=== PATIENT | male | born 1965 | race American Indian/Alaskan Native ===

== ENCOUNTER 2016-06-30 00:05 | Emergency (ER) | payer SELFPAY ==
[~2016-06-30 00:05] MED LIST: DOBUTREX DRIP 500MG/D5W 250ML 500 MG/250 ML BAG IV ONE
[2016-06-30] MEDS: SUBLIMAZE IV ONE ×2 (00:05→00:22)
[2016-06-30] MEDS: NACL 0.9% 1000 ML 2,000 ML IV ONE (00:10)
[2016-06-30] MEDS ORDERED: DOBUTREX DRIP 500MG/D5W 250ML 500 MG/250 ML BAG IV ONE (00:16)
[2016-06-30] MEDS ORDERED: SUBLIMAZE ONE (00:20)
[2016-06-30] MEDS ORDERED: LEVOPHED DRIP 4 MG/NS 250 ML 4 MG/250 ML BAG IV ONE (00:25)
[2016-06-30] MEDS: LEVOPHED 8 MG in NACL 0.9% 250ML 242 ML IV SCH (00:32)
[2016-06-30 01:15] LABS: Hematocrit 34.8 % (35.5-45.6); Hemoglobin 11.1 gm/dl (11.8-15.2); Mean Corpuscular HGB Conc 32 % (32-34); Mean Corpuscular Volume 75 fl (84-94); Platelet Count 357 K/mm3 (140-440); Red Blood Count 4.66 M/mm3 (3.65-5.03); White Blood Count 10.1 K/mm3 (4.5-11.0)
--- NOTE | 2016-06-30 01:20 | Emergency Department Report ---
ED Chest Pain HPI - General Chief Complaint: Chest Pain Stated Complaint: ANTONETTE Time Seen by Provider: 06/30/16 00:33 Source: patient, EMS Mode of arrival: Stretcher Limitations: No Limitations - History of Present Illness Initial Comments: Patient is a 50-year-old male with a history of hypertension, CHF, cardiomyopathy, recent NJ in March status post defibrillator pacemaker into left chest presenting to the ER with acute onset chest pain and dyspnea prior to arrival. Chest pain is sharp, constant, and in the middle of his chest. Pt reports this is the same pain he had when he had an NJ in March, treated at [facility]. Otherwise no fevers, chills, hemoptysis, LEE, abd pain, NVD, trauma, travel, or sick contacts MD Complaint: chest pain, other (SOB) -: Sudden, minutes(s) Onset: during rest Pain Location: substernal Severity: severe Severity scale (0 -10): 10 Quality: sharp Consistency: constant Improves With: nothing Worsens With: exertion - Related Data Allergies Allergy/AdvReac Type Severity Reaction Status Date / Time Iodinated Contrast Media - AdvReac Rash Verified 06/30/16 00:36 IV Dye BENJAMIN score - Benjamin Score Age > 65: (0) No Aspirin use within the Past 7 Days: (1) Yes 3 or more CAD Risk Factors: (1) Yes 2 or more Angina events in past 24 hrs: (0) No Known CAD with more than 50% Stenosis: (1) Yes Elevated Cardiac Markers: (1) Yes ST Deviation Greater than 0.5mm: (0) No BENJAMIN Score: 4 ED Review of Systems ROS: Stated complaint: ANTONETTE Other details as noted in HPI Comment: All other systems reviewed and negative ED Past Medical Hx - Past Medical History Previous Medical History?: Yes Hx Hypertension: Yes Hx Heart Attack/AMI: Yes Hx Congestive Heart Failure: Yes (EF 10-15%) - Surgical History Hx Coronary Stent: Yes Hx Pacemaker: Yes Hx Internal Defibrillator: Yes ED Physical Exam - General Limitations: No Limitations General appearance: alert, in distress - Head Head exam: Present: atraumatic, normocephalic - Eye Eye exam: Present: normal appearance - ENT ENT exam: Present: mucous membranes moist - Neck Neck exam: Present: normal inspection - Respiratory Respiratory exam: Present: normal lung sounds bilaterally. Absent: respiratory distress - Cardiovascular Cardiovascular Exam: Present: tachycardia. Absent: systolic murmur, diastolic murmur, rubs, gallop - GI/Abdominal GI/Abdominal exam: Present: soft, normal bowel sounds. Absent: distended, tenderness, guarding, rebound - Rectal Rectal exam: Present: deferred - Extremities Exam Extremities exam: Present: normal inspection - Back Exam Back exam: Present: normal inspection - Neurological Exam Neurological exam: Present: alert, oriented X3 - Psychiatric Psychiatric exam: Present: normal affect, normal mood - Skin Skin exam: Present: warm, dry, intact, normal color. Absent: rash ED Course Vital Signs 06/30/16 06/30/16 06/30/16 00:05 00:30 00:38 Temperature 98.7 F Pulse Rate 134 H Respiratory 28 H 28 H 12 Rate Blood Pressure 85/59 O2 Sat by Pulse 98 98 100 Oximetry 06/30/16 06/30/16 06/30/16 00:40 00:50 00:52 Temperature Pulse Rate 116 H 113 H Respiratory 15 16 26 H Rate Blood Pressure 95/53 90/56 O2 Sat by Pulse 100 100 Oximetry 06/30/16 06/30/16 06/30/16 01:01 01:11 01:21 Temperature Pulse Rate 114 H 102 H 99 H Respiratory 19 10 L 20 Rate Blood Pressure 94/48 94/48 88/48 O2 Sat by Pulse 100 100 100 Oximetry 06/30/16 06/30/16 06/30/16 01:31 01:41 01:50 Temperature Pulse Rate 105 H 107 H 100 H Respiratory 22 15 12 Rate Blood Pressure 94/54 83/53 81/51 O2 Sat by Pulse 100 100 100 Oximetry 06/30/16 06/30/16 06/30/16 02:00 02:10 02:20 Temperature Pulse Rate 101 H 105 H 100 H Respiratory 12 11 L 22 Rate Blood Pressure 88/49 90/57 100/46 O2 Sat by Pulse 100 100 100 Oximetry 06/30/16 06/30/16 06/30/16 02:31 02:41 02:51 Temperature Pulse Rate 96 H 94 H 95 H Respiratory 15 12 17 Rate Blood Pressure 89/67 96/54 86/47 O2 Sat by Pulse 100 99 100 Oximetry 06/30/16 06/30/16 06/30/16 03:00 03:10 03:20 Temperature Pulse Rate 94 H 93 H 91 H Respiratory 15 13 14 Rate Blood Pressure 91/43 84/42 87/46 O2 Sat by Pulse 99 100 100 Oximetry 06/30/16 06/30/16 06/30/16 03:30 03:41 03:51 Temperature Pulse Rate 90 92 H 102 H Respiratory 17 8 L 10 L Rate Blood Pressure 91/50 86/50 92/50 O2 Sat by Pulse 100 99 100 Oximetry 06/30/16 06/30/16 06/30/16 04:01 04:10 04:20 Temperature Pulse Rate 91 H 96 H 105 H Respiratory 17 8 L 14 Rate Blood Pressure 98/55 88/59 98/52 O2 Sat by Pulse 100 100 99 Oximetry - Central Line Placement Right IJ Consent Obtained: verbal consent Time Out Performed: Yes Patient Placed on Monitor/Pulse Ox: Yes Prep: mask, gown, gloves Central Line Prep: Chlorhexidine scrub, sterile drapes applied Local Anesthesia Used: Lidocaine 1% Amount of Anesthesia Used (mls): 3 Ultrasound Used for Placement: Yes Central Line Lumen Inserted: triple Bloods Obtained for Lab: Yes Central Line Position: good blood return, all ports aspirated, flus, sutured in place with 2-0 Dressing Applied: Tegaderm Patient Tolerated Procedure: well Complications: none ED Medical Decision Making - Lab Data Result diagrams: 06/30/16 00:10 06/30/16 00:10 - EKG Data -: EKG Interpreted by Md EKG shows normal: sinus rhythm, axis (LBBB), ST-T waves ((-)STEMI) Rate: tachycardia (131 bpm) No standard instances Heart block present: 1st Degree, Mobitz 1, Mobitz 2, complete heart block - EKG Data When compared to previous EKG there are: previous EKG unavailable 06/30/16 00:17 EKG Sinus tach at 121 bpm LBBB persists, no STEMI 0113: EKG changed morphology, Sinus Tach at 103 bpm, LBBB resolved, LAD, with LAFB, no STEMI 00:18 EKG Sinus tach at 124 bpm, (-)STEMI - Radiology Data CXR: cardiomegaly and pulmonary congestion - Medical Decision Making Pt has known heart disease with poor EF of 10-15%, recently had a defibrillator and pacer placed at [facility]. Pt reports he follows closely with [facility] Given the critical condition of the patient with known HF, patient in cardiogenic shock, no improvement with IVF, SBP consistenly in the 60-80 range by manual cuff pressure. Pt started on levophed and milrinone to maintain MAP of 65mmHG or greater. I did consult the decision science analyst chemical plant technical director at [facility] for these recommendations. I then discussed with the patient and his family that it would be best to transfer him to [facility] due to his critical condition and given the fact he may need further cardiac support ie balloon pump or other support, it would be beneficial to transfer. they agreed I spoke with Dr Vu at [facility] who will accept the patient to the CCU Critical Care Time: Yes Critical care time in (mins) excluding proc time.: 45 (minutes) Critical care attestation.: If time is entered above; I have spent that time in minutes in the direct care of this critically ill patient, excluding procedure time. 45 minutes of critical care time ED Disposition Clinical Impression: Chest pain, Cardiogenic shock Disposition: DC/TX ANOTHER TYPE HEALTHCARE Is pt being admited?: Yes Condition: Critical Instructions: Chest Pain (ED)
[2016-06-30 01:26] LABS: INR 1.07 (0.87-1.13)
[2016-06-30 01:29] LABS: Mean Corpuscular Hemoglobin 24 pg (28-32); Red Cell Distribution Width 26.1 % (13.2-15.2)
[2016-06-30 01:36] LABS: BUN/Creatinine Ratio 22.3; Calcium 8.8 mg/dL (8.4-10.2)
[2016-06-30] MEDS: NACL 0.9% IV SCH (02:01)
[2016-06-30] MEDS: PRIMACOR IV SCH (02:01)
[2016-06-30 03:05] LABS: Blastocytes % (Manual) 0 %
[2016-06-30 03:10] LABS: Anisocytosis 2+; Basophils % (Manual) 0 % (0.0-1.8); Eosinophils % (Manual) 0 % (0.0-4.3); Hypochromasia 1+
[2016-06-30 03:11] LABS: Diff Status Complete
[2016-06-30] MEDS: LASIX IV ONE (04:51)
[2016-06-30 04:56] VITALS: BP 98/52
--- NOTE | 2016-06-30 09:28 | XRay Report ---
AP CHEST: HISTORY: chest pain No comparison. There is moderate cardiomegaly and mild pulmonary venous congestion. The lungs are clear. No evidence for pneumonia, CHF or pneumothorax. Multilead pacemaker device is in place. Right IJ venous catheter terminates in the superior SVC. IMPRESSION: Cardiomegaly and pulmonary venous congestion.
== END 2016-06-30 04:55 | disposition other institution (70) ==
LOC: ED 00:05
DX: R57.0 Cardiogenic shock (principal); R07.89 Other chest pain; I10 Essential (primary) hypertension; I25.2 Old myocardial infarction; I50.9 Heart failure, unspecified
CPT/HCPCS: 36415; 36556; 71010; 80048; 80061; 82140; 83735; 84443; 84484; 85007; 85025; 85379; 85610; 85730; 86850; 86900; 86901; 93005; 93010; 96365; 96366; 96367; 96375; 99291; J1250; J2260; J3010; J7050

== ENCOUNTER 2016-09-29 05:27 | Inpatient (IN) | payer SELFPAY ==
[2016-09-29] MEDS ORDERED: SUBLIMAZE IV ONE (06:25)
[2016-09-29] MEDS ORDERED: ZOFRAN IV ONE (06:25)
--- NOTE | 2016-09-29 06:30 | Emergency Department Report ---
HPI - General Chief Complaint: Chest Pain Time Seen by Provider: 09/29/16 06:15 - HPI HPI: Room 21 The patient is a 51-year-old male presenting with a chief complaint chest pain and shortness of breath. The patient states yesterday he developed sharp intermittent chest pain mostly at night in the left chest. The patient states that time she's had nausea/vomiting, diaphoresis and shortness of breath. The patient states he is unable to sleep and has exhibited orthopnea. The patient has a history of CHF and has a PICC line for milrinone administration for several months. 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, Rt thigh; currently on heart transplant list; TIA - Surgical History Past Surgical History?: Yes Hx Coronary Stent: Yes Hx Pacemaker: Yes Hx Internal Defibrillator: Yes - Family History Family history: no significant - Social History Smoking Status: Former Smoker (none times one year) Substance Use Type: None ED Review of Systems ROS: Stated complaint: CHEST PAIN Other details as noted in HPI Comment: All other systems reviewed and negative Constitutional: diaphoresis Eyes: denies: eye pain, eye discharge, vision change ENT: denies: ear pain, throat pain Respiratory: shortness of breath Cardiovascular: chest pain Endocrine: no symptoms reported Gastrointestinal: nausea, vomiting. denies: abdominal pain, diarrhea Genitourinary: denies: urgency, dysuria Musculoskeletal: as per HPI Skin: denies: rash, lesions Neurological: denies: headache, weakness, paresthesias Psychiatric: denies: anxiety, depression Hematological/Lymphatic: denies: easy bleeding, easy bruising Physical Exam - Physical Exam Vital Signs: Vital Signs 09/29/16 09/29/16 05:29 05:49 Temperature 97.4 F L Pulse Rate 110 H Respiratory 18 20 Rate Blood Pressure 109/66 O2 Sat by Pulse 100 100 Oximetry Physical Exam: GENERAL: The patient is well-developed well-nourished male lying on stretcher not appear to be in acute distress. [] HEENT: Normocephalic. Atraumatic. Extraocular motions are intact. Patient has moist mucous membranes. NECK: Supple. Trachea midline CHEST/LUNGS: Clear to auscultation. There is no respiratory distress noted. HEART/CARDIOVASCULAR: Regular. There is no tachycardia. There is a 5/6 systolic murmur. ABDOMEN: Abdomen is soft, nontender. Patient has normal bowel sounds. There is no abdominal distention. SKIN: There is no rash. There is no edema. There is no diaphoresis. NEURO: The patient is awake, alert, and oriented. The patient is cooperative. The patient has normal speech MUSCULOSKELETAL: There is no evidence of acute injury. ED Course Vital Signs 09/29/16 09/29/16 05:29 05:49 Temperature 97.4 F L Pulse Rate 110 H Respiratory 18 20 Rate Blood Pressure 109/66 O2 Sat by Pulse 100 100 Oximetry ED Medical Decision Making - Lab Data Result diagrams: 09/29/16 06:20 09/29/16 06:20 Laboratory Tests 09/29/16 09/29/16 09/29/16 06:20 06:20 06:20 WBC 6.0 RBC 4.76 Hgb 10.2 L Hct 32.5 L MCV 68 L MCH 21 L MCHC 31 L RDW 24.1 H Plt Count 235 Lymph % (Auto) 15.5 [place] % (Auto) 11.1 H Eos % (Auto) 2.1 Baso % (Auto) 1.3 Lymph # 0.9 L [place] # 0.7 Eos # 0.1 Baso # 0.1 Seg Neutrophils % 70.0 Seg Neutrophils # 4.2 PT 17.6 H INR 1.45 H APTT 29.8 Sodium 131 L Potassium 3.6 Chloride 86.3 L Carbon Dioxide 27 Anion Gap 21 BUN 43 H Creatinine 2.0 H Estimated GFR 43 BUN/Creatinine Ratio 21.50 Glucose 103 H Calcium 9.0 Troponin T 0.048 H - EKG Data -: EKG Interpreted by Me Rate: tachycardia - EKG Data When compared to previous EKG there are: no significant change Interpretation: other (left bundle branch block) - Radiology Data Radiology results: image reviewed (chest x-ray) interpreted by me: Chest [id number], no focal infiltrates, no pneumothorax - Differential Diagnosis CHF exacerbation, ACS, GERD, pericarditis Critical care attestation.: If time is entered above; I have spent that time in minutes in the direct care of this critically ill patient, excluding procedure time. ED Disposition Clinical Impression: CHF exacerbation, Chest pain, Renal insufficiency, Elevated troponin Disposition: OP ADMIT IP TO THIS HOSP Is pt being admited?: Yes Does the pt Need Aspirin: No Condition: Fair Instructions: Chest Pain (ED) Referrals: PRIMARY CARE, [Primary Care Provider] - 3-5 Days Time of Disposition: 06:52 (hospitalist paged)
[2016-09-29 06:38] LABS: Basophils % (Auto) 1.3 % (0.0-1.8); Eosinophils % (Auto) 2.1 % (0.0-4.3); Hematocrit 32.5 % (35.5-45.6); Hemoglobin 10.2 gm/dl (11.8-15.2); Mean Corpuscular HGB Conc 31 % (32-34); Platelet Count 235 K/mm3 (140-440); Red Blood Count 4.76 M/mm3 (3.65-5.03)
[2016-09-29 06:39] LABS: Mean Corpuscular Hemoglobin 21 pg (28-32); Mean Corpuscular Volume 68 fl (84-94); Red Cell Distribution Width 24.1 % (13.2-15.2)
[2016-09-29 06:48] LABS: INR 1.45 (0.87-1.13)
[2016-09-29 06:49] LABS: BUN/Creatinine Ratio 21.5; Chloride 86.3 mmol/L (98-107); Partial Thromboplastin Time 29.8 Sec. (24.2-36.6); Potassium 3.6 mmol/L (3.6-5.0)
[2016-09-29] MEDS ORDERED: PLAVIX PO ONE (06:53)
--- NOTE | 2016-09-29 07:09 | XRay Report ---
AP CHEST: HISTORY: chest pain Moderate cardiomegaly is unchanged since 06/30/16. 3-lead pacemaker device is also unchanged. Pulmonary vascularity has decreased and is within normal limits. The lungs are clear. No evidence for pneumonia, CHF or pneumothorax. Right arm PICC terminates in the mid to lower SVC. IMPRESSION: Cardiomegaly.
--- NOTE | 2016-09-29 07:51 | Admit Criteria Form ---
Admission Criteria Documentation: HEART FAILURE Clinical Indications for Admission to Inpatient Care (Place 'X' for any and all applicable criteria): Admission is indicated by 1 or more of the following(1)(2)(3)(4)(5)(6)(7) [ ]I. Hemodynamic instability(9) [ ]II. Severe electrolyte abnormalities requiring inpatient care [ ]III. Cardiac arrhythmias of immediate concern [ ]IV. Precipitating cause for acute decompensation (eg, pneumonia, pulmonary embolism) requires inpatient care [ ]V. Acute cardiac ischemia causing or associated with failure (Also use Angina or Myocardial Infarction as appropriate) [ ]. Pulmonary edema that is very severe (eg, mechanical ventilation needed, imminent or likely, need for 100% oxygen to keep oxygen saturation above 90%) [ ]VII. Massive skin edema (anasarca) with complications (eg tissue breakdown with infection, inability to void due to edema)[A] (15) [X]VIIl. Inpatient admission required [B]rather than observation care (See Heart Failure: Observation Care as appropriate) because of 1 or more of the following(16)(17): [ ]a) Pulmonary edema that is severe or worsening as indicated by ALL of the following: [ ]1) New need for oxygen therapy to keep oxygen saturation above 90% (or increased FiO2 need from baseline) [ ]2) Has not improved sufficiently with emergency department or observation care IV diuretics or other heart failure treatments[C] [ ]b) Altered mental status that is severe or persistent [ ]c) Increased creatinine (new on laboratory test) with reduction of more than 50% in estimated glomerular filtration rate from baseline. [ ]d) Progressively (ongoing) rising creatinine (known from past laboratory test) with reduction of more than 25% in estimated glomerular filtration rate from baseline [ ]e) Acute renal insufficiency (progressively (ongoing) rising creatinine (known from past laboratory test) with reduction of more than 25% in estimated glomerular filtration rate from baseline. [X]f) Acute renal failure [ ]g) Acute peripheral ischemia (e.g., examination shows pulseless, cool, mottled, or cyanotic extremity) [ ]h) Oyxgen administration or respiratory treatments have been needed for over 24 hours that are performable only in acute inpatient setting [ ]i) Pulmonary artery catheter monitoring [ ]j) Other condition, treatment or monitoring requiring inpatient admission Extended stay beyond goal length of stay may be needed for(1)(14)(38)(42)(45) [ ]a) Cardiac ischemia, confirmed or suspected as precipitant (1) [ ]b) Cardiogenic shock (2)(46)(47)(48)(49) [ ]c) Acute renal failure [ ]d) Stage IV chronic kidney disease (estimated glomerular filtration rate of less than 30 mL/min/1.73m2 (0.50 mL/sec/1.73m2), and not previously on chronic dialysis [ ]e) Respiratory failure (eg, need for noninvasive or invasive ventilation) ( 50) [ ]f) Concomitant pneumonia or significant electrolyte abnormality (eg, severe hyponatremia) (51) [ ]g) Newly diagnosed (new onset) atrial fibrillation (52)(53) The original [facility] content created by [facility] has been revised. The portions of the content which have been revised are identified through the use of italic text or in bold, and [facility] has neither reviewed nor approved the modified material. All other unmodified content is copyright [facility]. Please see references footnoted in the original [facility] edition 2017 Admission Criteria Met: Yes
[2016-09-29] MEDS ORDERED: DULCOLAX PR PRN (09:00)
[2016-09-29] MEDS ORDERED: PRIMACOR 20 MG in D5W 80 ML IV SCH (09:00)
[2016-09-29] MEDS ORDERED: MORPHINE IV PRN (09:00)
[2016-09-29] MEDS ORDERED: TYLENOL PO PRN (09:00)
[2016-09-29] MEDS ORDERED: ZOFRAN IV PRN (09:00)
[2016-09-29] MEDS ORDERED: NON-FORMULARY (Potassium Chloride [Klor-Con 10] 20 MEQ) PO SCH (10:00)
[2016-09-29] MEDS ORDERED: DEMADEX PO SCH (10:00)
[2016-09-29] MEDS ORDERED: NON-FORMULARY (Isosorbide Mononitrate [Isosorbide Mononitrate] 30 MG) PO SCH (10:00)
[2016-09-29] MEDS: ALDACTONE PO SCH (12:00)
[2016-09-29] MEDS: CORDARONE PO SCH (12:00)
[2016-09-29] MEDS: IMDUR PO SCH (12:00)
[2016-09-29] MEDS: ZAROXOLYN PO SCH (12:00)
--- NOTE | 2016-09-29 12:19 | History and Physical Report ---
<KESHIA RODGERS - Last Filed: 09/29/16 13:30> History of Present Illness Date of examination: 09/29/16 Date of admission: 09/29/16 08:21 Chief complaint: Chest pain and shortness of breath History of present illness: Patient is a 51 years -[place] woman with a history of HTN, syCHF and systolic cardiomyopathy icd, CVA, [place] who presents this morning c/o chest pain and SOB that started approximately 12 hours prior to presentation. The pain is substernal and she also feels it under the left side of her chest in the midclavicular region; He describes the quality as a chest tightness/pressure with radiation to the shoulder, arm, back. It has been a constant pain since it started yesterday evening. At first, he felt a stabbing pain that was 9/10 but eventually it became more crampy and is currently 1/10 in the ED after SL Nitro x 2 and ASA (325 mg) . He does not take anything to alleviate the pain. About 15 min after the chest pain started, he began coughing and endorses having yellow sputum. The chest pain was not aggravated by coughing or taking deep breaths. His discomfort was accompanied by shortness of breath,sweating, nausea , and vomiting. This morning became SOB, he felt like he could not catch his breath and got worried so he called 911 and they brought him to the ED. He continues to have 3-4 pillow orthopnea and P[place] but is currently denying PND, abdominal distention, or peripheral edema. The patient has a history of CHF and has a PICC line for milrinone administration at home for the past several months. Past History Past Medical History: heart failure, hypertension, other (pacemaker/ defibrillator. gout) Past Surgical History: Other (gallbladder removed) Family history: CAD, hypertension Medications and Allergies Allergies Allergy/AdvReac Type Severity Reaction Status Date / Time Iodinated Contrast Media - AdvReac Rash Verified 06/30/16 00:36 IV Dye Home Medications Medication Instructions Recorded Confirmed Last Taken Type Amiodarone [Cordarone 200 MG TAB] 200 mg PO QDAY 09/29/16 09/29/16 Unknown History AtorvaSTATin [Lipitor] 40 mg PO QHS 09/29/16 09/29/16 Unknown History Clopidogrel Bisulfate [Plavix] 75 mg PO QDAY 09/29/16 09/29/16 Unknown History Ferrous Gluconate [Fergon] 324 mg PO QDAY 09/29/16 09/29/16 Unknown History Isosorbide Mononitrate 30 mg PO QDAY 09/29/16 09/29/16 Unknown History Metolazone 5 mg PO QDAY 09/29/16 09/29/16 Unknown History Potassium Chloride [Klor-Con 10] 20 meq PO QDAY 09/29/16 09/29/16 Unknown History Spironolactone [Aldactone] 25 mg PO QDAY 09/29/16 09/29/16 Unknown History Torsemide [Demadex] 100 mg PO QDAY 09/29/16 09/29/16 Unknown History Warfarin [Coumadin] 5 mg PO QDAY 09/29/16 09/29/16 Unknown History hydrALAZINE [Apresoline] 50 mg PO Q8HR 09/29/16 09/29/16 Unknown History Active Meds: Active Medications Acetaminophen (Tylenol) 650 mg PO Q4H PRN PRN Reason: Pain MILD(1-3)/Fever >100.5/LEE Amiodarone HCl (Cordarone) 200 mg PO QDAY [facility] Atorvastatin Calcium (Lipitor) 40 mg PO QHS [facility] Bisacodyl (Dulcolax) 10 mg [place] QDAY PRN PRN Reason: Constipation unrelieved by MOM Clopidogrel Bisulfate (Plavix) 75 mg PO QDAY [facility] Ferrous Gluconate (Fergon) 324 mg PO QDAY [facility] Hydralazine HCl (Apresoline) 50 mg PO Q8HR [facility] Milrinone Lactate 20 mg/ (Dextrose) 100 mls @ 12.6 mls/hr IV TITR [facility]; 0.375 MCG/KG/MIN PRN Reason: Protocol Isosorbide Mononitrate (Imdur) 30 mg PO DAILY [facility] Metolazone (Zaroxolyn) 5 mg PO QDAY [facility] Morphine Sulfate (Morphine) 2 mg IV Q4H PRN PRN Reason: Pain, Moderate (4-6) Ondansetron HCl (Zofran) 4 mg IV Q4H PRN PRN Reason: vomting Potassium Chloride (K-Dur) 20 meq PO QDAY [facility] Spironolactone (Aldactone) 25 mg PO QDAY [facility] Torsemide (Demadex) 100 mg PO QDAY [facility] Warfarin Sodium (Coumadin Pharmacy To Dose) 1 each PO PKCONSULT [facility] PRN Reason: Protocol Warfarin Sodium (Coumadin) 5 mg PO DAILY@1700 [facility] Review of Systems Constitutional: sweats, no weight loss, no weight gain, no fever, no chills Ears, nose, mouth and throat: no ear pain, no ear discharge, no tinnitis Cardiovascular: lightheadedness, shortness of breath, dyspnea on exertion, paroxysmal nocturnal dyspnea, no chest pain, no orthopnea, no palpitations, no rapid/irregular heart beat Respiratory: cough, cough with sputum (yellow) Gastrointestinal: nausea, vomiting, no abdominal pain Genitourinary Male: no dysuria, no hematuria, no flank pain Rectal: no pain, no incontinence Musculoskeletal: no neck stiffness, no neck pain, no shooting arm pain Integumentary: no rash, no pruritis, no redness, no sores, no wounds Neurological: no head injury, no transient paralysis, no paralysis, no weakness Psychiatric: no anxiety, no memory loss, no change in sleep habits, no insomnia , no hypersomnia Endocrine: no cold intolerance, no heat intolerance, no polyphagia, no excessive thirst, no polydipsia Hematologic/Lymphatic: no easy bruising, no easy bleeding Allergic/Immunologic: no urticaria, no allergic rhinitis Exam - Constitutional Vitals: Temp Pulse Resp BP Pulse Ox 98.2 F 55 L 20 92/54 100 09/29/16 11:16 09/29/16 11:16 09/29/16 11:16 09/29/16 11:16 09/29/16 11:16 General appearance: Present: mild distress - EENT Eyes: Present: PERRL ENT: hearing intact, clear oral mucosa, dentition normal - Neck Neck: Present: supple - Respiratory Respiratory effort: normal Respiratory: bilateral: CTA - Cardiovascular Heart rate: 92 Rhythm: regular Heart Sounds: Present: systolic murmur - Extremities Extremities: no ischemia Extremity abnormal: edema (to lower extermity) Peripheral Pulses: within normal limits - Abdominal General gastrointestinal: Present: soft, non-tender Male genitourinary: Present: deferred - Rectal Rectal Exam: deferred - Integumentary Integumentary: Present: clear, warm, dry - Musculoskeletal Musculoskeletal: strength equal bilaterally - Psychiatric Psychiatric: appropriate mood/affect - Neurologic Neurologic: CNII-XII intact - Allied Health Allied health notes reviewed: nursing Results - Labs CBC & Chem 7: 09/29/16 06:20 09/29/16 06:20 Labs: Laboratory Last Values WBC 6.0 K/mm3 (4.5-11.0) 09/29/16 06:20 RBC 4.76 M/mm3 (3.65-5.03) 09/29/16 06:20 Hgb 10.2 gm/dl (11.8-15.2) L 09/29/16 06:20 Hct 32.5 % (35.5-45.6) L 09/29/16 06:20 MCV 68 fl (84-94) L 09/29/16 06:20 MCH 21 pg (28-32) L 09/29/16 06:20 MCHC 31 % (32-34) L 09/29/16 06:20 RDW 24.1 % (13.2-15.2) H 09/29/16 06:20 Plt Count 235 K/mm3 (140-440) 09/29/16 06:20 Lymph % (Auto) 15.5 % (13.4-35.0) 09/29/16 06:20 [place] % (Auto) 11.1 % (0.0-7.3) H 09/29/16 06:20 Eos % (Auto) 2.1 % (0.0-4.3) 09/29/16 06:20 Baso % (Auto) 1.3 % (0.0-1.8) 09/29/16 06:20 Lymph # 0.9 K/mm3 (1.2-5.4) L 09/29/16 06:20 [place] # 0.7 K/mm3 (0.0-0.8) 09/29/16 06:20 Eos # 0.1 K/mm3 (0.0-0.4) 09/29/16 06:20 Baso # 0.1 K/mm3 (0.0-0.1) 09/29/16 06:20 Seg Neutrophils % 70.0 % (40.0-70.0) 09/29/16 06:20 Seg Neutrophils # 4.2 K/mm3 (1.8-7.7) 09/29/16 06:20 PT 17.6 Sec. (12.2-14.9) H 09/29/16 06:20 INR 1.45 (0.87-1.13) H 09/29/16 06:20 APTT 29.8 Sec. (24.2-36.6) 09/29/16 06:20 Sodium 131 mmol/L (137-145) L 09/29/16 06:20 Potassium 3.6 mmol/L (3.6-5.0) 09/29/16 06:20 Chloride 86.3 mmol/L (98-107) L 09/29/16 06:20 Carbon Dioxide 27 mmol/L (22-30) 09/29/16 06:20 Anion Gap 21 mmol/L 09/29/16 06:20 BUN 43 mg/dL (9-20) H 09/29/16 06:20 Creatinine 2.0 mg/dL (0.8-1.5) H 09/29/16 06:20 Estimated GFR 43 ml/min 09/29/16 06:20 BUN/Creatinine Ratio 21.50 % 09/29/16 06:20 Glucose 103 mg/dL (75-100) H 09/29/16 06:20 Calcium 9.0 mg/dL (8.4-10.2) 09/29/16 06:20 Troponin T 0.045 ng/mL (0.00-0.029) H 09/29/16 08:24 NT-Pro-B Natriuret Pep 3973 pg/mL (0-450) H 09/29/16 06:20 Triglycerides 72 mg/dL (2-149) 09/29/16 06:20 Cholesterol 95 mg/dL (50-199) 09/29/16 06:20 LDL Cholesterol Direct 53 mg/dL (50-130) 09/29/16 06:20 HDL Cholesterol 28 mg/dL (40-59) L 09/29/16 06:20 Cholesterol/HDL Ratio 3.39 % 09/29/16 06:20 - Imaging and Cardiology Chest x-ray: image reviewed (cardiomegaly) Assessment and Plan Assessment and plan: Patient is a 51 years -[place] woman with a history of HTN, syCHF and systolic cardiomyopathy icd, CVA, [place] who presents this morning c/o chest pain and SOB that started approximately 12 hours prior to presentation. EKG left bundle branch block no change from previous EKG when we compared it. Chest x-ray -cardiomegaly, no focal infiltrates, no pneumothorax. Elevated Troponni X3. Chest pain We will admit to telemetry floor for continuous cardiac monitoring 12 lead EKG obtained, we also get another EKG in order for any changes that have taken since first obtained We will do cardiac enzymes for no cardiac enzyme troponin Stress test appreciate cardiology input Cardiology consulted CHF exacerbation Patient has a recent Echocardiogram with Ef 10-15% Patient on ADALBERTO inhibitors, beta blockers ordered Patient on Milrinone drip and Torsemide 100 mg PO Low-Sodium cardiac diet, fluid restriction 1200ml in 24 hours Closely monitor electrolytes Cardiology consulted Acute kidney injury/vasomotor nephropathy Etiology unknown Elevated BUN/creatinine We will repeat BMP Renal ultrasound ordered Nephrology consulted for further evaluation Hypertension We will resume home antihypertensive medicine Closely Monitor blood pressure Hyperlipidemia We will resume home antilipid medicine Discussed with the patient about the importance of physical exercise, low-fat diet, reducing intake of high-fat foods to improve cardiovascular disease. Patient agreed upon course of action. DVT prophylaxis Coumadin, closely monitor INR DANIEL score - Daniel Score Age > 65: (0) No Aspirin use within the Past 7 Days: (1) Yes 3 or more CAD Risk Factors: (1) Yes 2 or more Angina events in past 24 hrs: (0) No Known CAD with more than 50% Stenosis: (1) Yes Elevated Cardiac Markers: (1) Yes ST Deviation Greater than 0.5mm: (0) No DANIEL Score: 4 <MAYCOL HENDRICKS M - Last Filed: 09/29/16 15:01> History of Present Illness Date of admission: 09/29/16 08:21 Medications and Allergies Active Meds: Active Medications Acetaminophen (Tylenol) 650 mg PO Q4H PRN PRN Reason: Pain MILD(1-3)/Fever >100.5/LEE Amiodarone HCl (Cordarone) 200 mg PO QDAY [facility] Atorvastatin Calcium (Lipitor) 40 mg PO QHS [facility] Bisacodyl (Dulcolax) 10 mg DE QDAY PRN PRN Reason: Constipation unrelieved by MOM Clopidogrel Bisulfate (Plavix) 75 mg PO QDAY [facility] Ferrous Gluconate (Fergon) 324 mg PO QDAY [facility] Hydralazine HCl (Apresoline) 50 mg PO Q8HR [facility] Furosemide 100 mg/ Sodium (Chloride) 100 mls @ 5 mls/hr IV TITR [facility] PRN Reason: 5 MG/HR Milrinone Lactate 20 mg/ (Dextrose) 100 mls @ 8.4 mls/hr IV TITR [facility] PRN Reason: 0.25 MCG/KG/MIN Isosorbide Mononitrate (Imdur) 30 mg PO DAILY [facility] Metolazone (Zaroxolyn) 5 mg PO QDAY [facility] Morphine Sulfate (Morphine) 2 mg IV Q4H PRN PRN Reason: Pain, Moderate (4-6) Ondansetron HCl (Zofran) 4 mg IV Q4H PRN PRN Reason: vomting Potassium Chloride (K-Dur) 20 meq PO QDAY [facility] Spironolactone (Aldactone) 25 mg PO QDAY [facility] Warfarin Sodium (Coumadin Pharmacy To Dose) 1 each PO PKCONSULT [facility] PRN Reason: Protocol Warfarin Sodium (Coumadin) 5 mg PO DAILY@1700 [facility] Exam - Constitutional Vitals: Temp Pulse Resp BP Pulse Ox 98.2 F 55 L 20 92/54 100 09/29/16 11:16 09/29/16 11:16 09/29/16 11:16 09/29/16 11:16 09/29/16 11:16 Results - Labs CBC & Chem 7: 09/29/16 06:20 09/29/16 06:20 Labs: Laboratory Last Values WBC 6.0 K/mm3 (4.5-11.0) 09/29/16 06:20 RBC 4.76 M/mm3 (3.65-5.03) 09/29/16 06:20 Hgb 10.2 gm/dl (11.8-15.2) L 09/29/16 06:20 Hct 32.5 % (35.5-45.6) L 09/29/16 06:20 MCV 68 fl (84-94) L 09/29/16 06:20 MCH 21 pg (28-32) L 09/29/16 06:20 MCHC 31 % (32-34) L 09/29/16 06:20 RDW 24.1 % (13.2-15.2) H 09/29/16 06:20 Plt Count 235 K/mm3 (140-440) 09/29/16 06:20 Lymph % (Auto) 15.5 % (13.4-35.0) 09/29/16 06:20 [place] % (Auto) 11.1 % (0.0-7.3) H 09/29/16 06:20 Eos % (Auto) 2.1 % (0.0-4.3) 09/29/16 06:20 Baso % (Auto) 1.3 % (0.0-1.8) 09/29/16 06:20 Lymph # 0.9 K/mm3 (1.2-5.4) L 09/29/16 06:20 [place] # 0.7 K/mm3 (0.0-0.8) 09/29/16 06:20 Eos # 0.1 K/mm3 (0.0-0.4) 09/29/16 06:20 Baso # 0.1 K/mm3 (0.0-0.1) 09/29/16 06:20 Seg Neutrophils % 70.0 % (40.0-70.0) 09/29/16 06:20 Seg Neutrophils # 4.2 K/mm3 (1.8-7.7) 09/29/16 06:20 PT 17.6 Sec. (12.2-14.9) H 09/29/16 06:20 INR 1.45 (0.87-1.13) H 09/29/16 06:20 APTT 29.8 Sec. (24.2-36.6) 09/29/16 06:20 Sodium 131 mmol/L (137-145) L 09/29/16 06:20 Potassium 3.6 mmol/L (3.6-5.0) 09/29/16 06:20 Chloride 86.3 mmol/L (98-107) L 09/29/16 06:20 Carbon Dioxide 27 mmol/L (22-30) 09/29/16 06:20 Anion Gap 21 mmol/L 09/29/16 06:20 BUN 43 mg/dL (9-20) H 09/29/16 06:20 Creatinine 2.0 mg/dL (0.8-1.5) H 09/29/16 06:20 Estimated GFR 43 ml/min 09/29/16 06:20 BUN/Creatinine Ratio 21.50 % 09/29/16 06:20 Glucose 103 mg/dL (75-100) H 09/29/16 06:20 Calcium 9.0 mg/dL (8.4-10.2) 09/29/16 06:20 Troponin T 0.042 ng/mL (0.00-0.029) H 09/29/16 11:32 NT-Pro-B Natriuret Pep 3973 pg/mL (0-450) H 09/29/16 06:20 Triglycerides 72 mg/dL (2-149) 09/29/16 06:20 Cholesterol 95 mg/dL (50-199) 09/29/16 06:20 LDL Cholesterol Direct 53 mg/dL (50-130) 09/29/16 06:20 HDL Cholesterol 28 mg/dL (40-59) L 09/29/16 06:20 Cholesterol/HDL Ratio 3.39 % 09/29/16 06:20 Assessment and Plan Assessment and plan: I saw and evaluated the patient. I agree with the findings and the plan of care as documented in the Nurse Practitioner's H/P note. Cardiology recommendation appreciated. Advance Directives: Yes VTE prophylaxis?: Chemical Plan of care discussed with patient/family: Yes
--- NOTE | 2016-09-29 12:41 | Consultation ---
History of Present Illness Consult date: 09/29/16 Consult reason: chest pain History of present illness: This is a 51yr old male who reports an extensive cardiac history including cardiomyopathy and is dependent on intravenous milrinone therapy as an outpatient. He has an [facility] ICD in place. 3 months ago he had a cardiac cath at [facility] that showed nonobstructive coronary artery disease. Left ventricular EF of 19% by cardiac MRI. Patient also reports a history of chronic renal disease, hypertension, TIA and cardioembolic STEMI in 2015 and is on warfarin for oral anticoagulation therapy. He presented with chest pain and shortness of breath. Patient describes his chest pain and left pain under his breast associated with nausea vomiting and diaphoresis. He reports a weight gain of 5lbs over the last few days. His ECG shows a sinus rhythm with LVH. He denies syncope. He denies AICD discharge. Cardiac consultation requested. Medications and Allergies Allergies Allergy/AdvReac Type Severity Reaction Status Date / Time Iodinated Contrast Media - AdvReac Rash Verified 06/30/16 00:36 IV Dye Home Medications Medication Instructions Recorded Confirmed Last Taken Type Amiodarone [Cordarone 200 MG TAB] 200 mg PO QDAY 09/29/16 09/29/16 Unknown History AtorvaSTATin [Lipitor] 40 mg PO QHS 09/29/16 09/29/16 Unknown History Clopidogrel Bisulfate [Plavix] 75 mg PO QDAY 09/29/16 09/29/16 Unknown History Ferrous Gluconate [Fergon] 324 mg PO QDAY 09/29/16 09/29/16 Unknown History Isosorbide Mononitrate 30 mg PO QDAY 09/29/16 09/29/16 Unknown History Metolazone 5 mg PO QDAY 09/29/16 09/29/16 Unknown History Potassium Chloride [Klor-Con 10] 20 meq PO QDAY 09/29/16 09/29/16 Unknown History Spironolactone [Aldactone] 25 mg PO QDAY 09/29/16 09/29/16 Unknown History Torsemide [Demadex] 100 mg PO QDAY 09/29/16 09/29/16 Unknown History Warfarin [Coumadin] 5 mg PO QDAY 09/29/16 09/29/16 Unknown History hydrALAZINE [Apresoline] 50 mg PO Q8HR 07/19/17 07/19/17 Unknown History Active Meds: Active Medications Acetaminophen (Tylenol) 650 mg PO Q4H PRN PRN Reason: Pain MILD(1-3)/Fever >100.5/LEE Amiodarone HCl (Cordarone) 200 mg PO QDAY [facility] Atorvastatin Calcium (Lipitor) 40 mg PO QHS [facility] Bisacodyl (Dulcolax) 10 mg [place] QDAY PRN PRN Reason: Constipation unrelieved by MOM Clopidogrel Bisulfate (Plavix) 75 mg PO QDAY [facility] Ferrous Gluconate (Fergon) 324 mg PO QDAY [facility] Hydralazine HCl (Apresoline) 50 mg PO Q8HR [facility] Milrinone Lactate 20 mg/ (Dextrose) 100 mls @ 12.6 mls/hr IV TITR [facility]; 0.375 MCG/KG/MIN PRN Reason: Protocol Isosorbide Mononitrate (Imdur) 30 mg PO DAILY [facility] Metolazone (Zaroxolyn) 5 mg PO QDAY [facility] Morphine Sulfate (Morphine) 2 mg IV Q4H PRN PRN Reason: Pain, Moderate (4-6) Ondansetron HCl (Zofran) 4 mg IV Q4H PRN PRN Reason: vomting Potassium Chloride (K-Dur) 20 meq PO QDAY [facility] Spironolactone (Aldactone) 25 mg PO QDAY [facility] Torsemide (Demadex) 100 mg PO QDAY [facility] Warfarin Sodium (Coumadin Pharmacy To Dose) 1 each PO PKCONSULT [facility] PRN Reason: Protocol Warfarin Sodium (Coumadin) 5 mg PO DAILY@1700 [facility] Physical Examination Vital Signs Temp Pulse Resp BP Pulse Ox 97.4 F L 110 H 18 109/66 100 09/29/16 05:29 09/29/16 05:29 09/29/16 05:29 09/29/16 05:29 09/29/16 05:29 General appearance: no acute distress HEENT: Positive: PERRL Neck: Positive: trachea midline Cardiac: Positive: Reg Rate and Rhythm Lungs: Positive: Decreased Breath Sounds Results 09/29/16 06:20 09/29/16 06:20 Assessment and Plan 1. Acute decompensated systolic heart failure, NYHA class IV Refractory to torsemide 100 mg po daily and metolazone 5 mg po qweek Non-compliant with fluid restriction (consuming gatorade at home) 2. Non-ischemic stage D cardiomyopathy, milrinone dependent, LVEF 19% by cardiac MRI (follows with heart failure clinic at [place]) 3. Acute on Chronic renal failure - Creatinine 1.93 09/23/[address] [facility] AICD 5. Non-specific troponin and atypical chest pain [facility] 06/30/2016 - 60% distal LAD, luminal irregularities in Cx and RCA [facility] 06/30/2016 - PWP 48 mm Hg, CI 2.45 l/min, Mean PAP 55 mm Hg 6. History of TIA and cardioembolic STEMI in 2014 on warfarin therapy Recommendations: Continue milrinone at 0.25 mcg/Kg/min Change torsemide 100 mg to IV lasix drip at 5 mg/hr Continue metolazone Fluid restriction to 1000 cc per day No need for further cardiac work-up
--- NOTE | 2016-09-29 13:07 | Event Note ---
Date: 09/29/16 1. Acute decompensated systolic heart failure, NYHA class IV Refractory to torsemide 100 mg po daily and metolazone 5 mg po qweek Non-compliant with fluid restriction (consuming gatorade at home) 2. Non-ischemic stage D cardiomyopathy, milrinone dependent, LVEF 19% by cardiac MRI (follows with heart failure clinic at [place]) 3. Acute on Chronic renal failure - Creatinine 1.93 09/23/[address] [facility] AICD 5. Non-specific troponin and atypical chest pain [facility] 06/30/2016 - 60% distal LAD, luminal irregularities in Cx and RCA [facility] 06/30/2016 - PWP 48 mm Hg, CI 2.45 l/min, Mean PAP 55 mm Hg 6. History of TIA and cardioembolic STEMI in 2014 on warfarin therapy Recommendations: Continue milrinone at 0.25 mcg/Kg/min Change torsemide 100 mg to IV lasix drip at 5 mg/hr Continue metolazone Fluid restriction to 1000 cc per day No need for further cardiac work-up
[2016-09-29] MEDS: APRESOLINE PO SCH ×2 (14:00→21:08)
--- NOTE | 2016-09-29 16:45 | Ultrasound Report ---
ULTRASOUND RENAL INDICATION: Acute renal failure. COMPARISON: None similar. FINDINGS: Renal sonography demonstrates normal renal cortical echogenicity. Grossly preserved contours. No hydronephrosis. Right kidney measures 13 x 5.8 x 5.6 cm with cortical thickness of 1.3 cm. Approximately 1 cm right upper renal pole cortical cyst. Left kidney estimated at 12.6 x 5.8 x 5.3 cm with cortical thickness of 1.2 cm. Urinary bladder suboptimally distended and assessed. CONCLUSION: No acute renal sonographic abnormality, as described. Thank you for the opportunity to participate in this patient's care.
[2016-09-29] MEDS ORDERED: COUMADIN PO SCH (17:00)
[2016-09-29] MEDS: PRIMACOR 20 MG in D5W 80 ML IV SCH (17:39)
[2016-09-29] MEDS: K-DUR PO SCH (17:39)
[2016-09-29] MEDS: PLAVIX PO SCH (17:40)
[2016-09-29] MEDS: FERGON PO SCH (17:40)
[2016-09-30] MEDS: LASIX 100 MG in NACL 0.9% 90 ML IV SCH ×2 (00:52→11:34)
[2016-09-30] MEDS: PRIMACOR 20 MG in D5W 80 ML IV SCH ×2 (00:52→10:59)
[2016-09-30 05:36] LABS: Basophils % (Auto) 1.3 % (0.0-1.8); Eosinophils % (Auto) 1.1 % (0.0-4.3); Hematocrit 34.5 % (35.5-45.6); Hemoglobin 10.9 gm/dl (11.8-15.2); Mean Corpuscular HGB Conc 32 % (32-34); Platelet Count 241 K/mm3 (140-440); Red Blood Count 5.03 M/mm3 (3.65-5.03); White Blood Count 5.9 K/mm3 (4.5-11.0)
[2016-09-30 05:38] LABS: Mean Corpuscular Hemoglobin 22 pg (28-32); Mean Corpuscular Volume 69 fl (84-94); Red Cell Distribution Width 24.3 % (13.2-15.2)
[2016-09-30 05:41] LABS: INR 1.62 (0.87-1.13)
[2016-09-30 05:57] LABS: BUN/Creatinine Ratio 25.55; Calcium 9.5 mg/dL (8.4-10.2); Chloride 85.1 mmol/L (98-107); Potassium 3.1 mmol/L (3.6-5.0)
[2016-09-30] MEDS: APRESOLINE PO SCH (05:58)
[2016-09-30 08:10] VITALS: BP 94/62
--- NOTE | 2016-09-30 10:41 | Progress Note ---
Assessment and Plan Systolic heart failure, NYHA class IV Refractory to torsemide 100 mg po daily and metolazone 5 mg po qwk Non-compliant with fluid restriction not on ADALBERTO or beta eric d/t low blood pressure Non-ischemic stage D cardiomyopathy, milrinone dependent, LVEF 19% by cardiac MRI (follows with heart failure clinic at [place]) Acute on Chronic renal failure - Creatinine 1.93 09/23/2016 [facility] AICD Non-specific troponin and atypical chest pain [facility] 06/30/2016 - 60% distal LAD, luminal irregularities in Cx and RCA [facility] 06/30/2016 - PWP 48 mm Hg, CI 2.45 l/min, Mean PAP 55 mm Hg History of TIA and cardioembolic STEMI in 2014 on warfarin therapy Recommendations: Stable cardiac feliciano. Continue medical therapy for his systolic heart failure. F/U with [place] clinic within 1wk of discharge. Subjective Date of service: 09/30/16 Interval history: Patient is lying prone in bed, sleeping comfortably. Continues on IV lasix drip and IV milrinone. He denies chest pain but reports intermittent shortness of breath with exertion. Objective Vital Signs Temp Pulse Pulse Resp BP BP Pulse Ox 09/30/16 08:09 98.0 F 56 L 18 94/62 100 09/30/16 05:58 109/67 09/30/16 04:46 98.4 F 122 H 17 100/69 94 09/30/16 04:00 98.4 F 122 H 17 100/69 94 09/30/16 02:33 110 H 09/30/16 00:00 97.8 F 101 H 14 88/60 95 09/29/16 21:08 88 90/55 09/29/16 20:00 98.1 F 88 18 90/55 92 09/29/16 17:51 97.9 F 70 20 102/57 96 09/29/16 12:00 92/54 09/29/16 11:16 98.2 F 55 L 20 92/54 99 - Physical Examination General: No Apparent Distress HEENT: Positive: PERRL Neck: Positive: trachea midline Cardiac: Positive: Other (paced) Lungs: Positive: Decreased Breath Sounds Neuro: Positive: Grossly Intact Extremities: Present: edema (trace) - Labs and Meds Coagulation 09/30/16 Range/Units 04:39 PT 19.2 H (12.2-14.9) Sec. INR 1.62 H (0.87-1.13) CBC 09/30/16 Range/Units 04:39 WBC 5.9 (4.5-11.0) K/mm3 RBC 5.03 (3.65-5.03) M/mm3 Hgb 10.9 L (11.8-15.2) gm/dl Hct 34.5 L (35.5-45.6) % Plt Count 241 (140-440) K/mm3 Lymph # 0.8 L (1.2-5.4) K/mm3 [place] # 0.7 (0.0-0.8) K/mm3 Eos # 0.1 (0.0-0.4) K/mm3 Baso # 0.1 (0.0-0.1) K/mm3 Comprehensive Metabolic Panel 09/30/16 Range/Units 04:39 Carbon Dioxide 25 (22-30) mmol/L BUN 46 H (9-20) mg/dL Creatinine 1.8 H (0.8-1.5) mg/dL Glucose 91 (75-100) mg/dL Calcium 9.5 (8.4-10.2) mg/dL
[2016-09-30] MEDS: ALDACTONE PO SCH (10:54)
--- NOTE | 2016-09-30 10:54 | Consultation ---
Past History Past Medical History: heart failure, hypertension, other (pacemaker/ defibrillator. gout) Past Surgical History: Other (gallbladder removed) Family history: CAD, hypertension Medications and Allergies Allergies Allergy/AdvReac Type Severity Reaction Status Date / Time Iodinated Contrast Media - AdvReac Rash Verified 06/30/16 00:36 IV Dye Home Medications Medication Instructions Recorded Confirmed Last Taken Type Amiodarone [Cordarone 200 MG TAB] 200 mg PO QDAY 09/29/16 09/29/16 Unknown History AtorvaSTATin [Lipitor] 40 mg PO QHS 09/29/16 09/29/16 Unknown History Clopidogrel Bisulfate [Plavix] 75 mg PO QDAY 09/29/16 09/29/16 Unknown History Ferrous Gluconate [Fergon] 324 mg PO QDAY 09/29/16 09/29/16 Unknown History Isosorbide Mononitrate 30 mg PO QDAY 09/29/16 09/29/16 Unknown History Metolazone 5 mg PO QDAY 09/29/16 09/29/16 Unknown History Potassium Chloride [Klor-Con 10] 20 meq PO QDAY 09/29/16 09/29/16 Unknown History Spironolactone [Aldactone] 25 mg PO QDAY 09/29/16 09/29/16 Unknown History Torsemide [Demadex] 100 mg PO QDAY 09/29/16 09/29/16 Unknown History Warfarin [Coumadin] 5 mg PO QDAY 09/29/16 09/29/16 Unknown History hydrALAZINE [Apresoline] 50 mg PO Q8HR 09/29/16 09/29/16 Unknown History Active Meds: Active Medications Acetaminophen (Tylenol) 650 mg PO Q4H PRN PRN Reason: Pain MILD(1-3)/Fever >100.5/LEE Amiodarone HCl (Cordarone) 200 mg PO QDAY [facility] Last Admin: 09/29/16 12:00 Dose: Not Given Atorvastatin Calcium (Lipitor) 40 mg PO QHS [facility] Last Admin: 09/30/16 00:51 Dose: 40 mg Bisacodyl (Dulcolax) 10 mg SC QDAY PRN PRN Reason: Constipation unrelieved by MOM Clopidogrel Bisulfate (Plavix) 75 mg PO QDAY [facility] Last Admin: 09/29/16 17:40 Dose: 75 mg Ferrous Gluconate (Fergon) 324 mg PO QDAY [facility] Last Admin: 09/29/16 17:40 Dose: 324 mg Hydralazine HCl (Apresoline) 50 mg PO Q8HR [facility] Last Admin: 09/30/16 05:58 Dose: Not Given Furosemide 100 mg/ Sodium (Chloride) 100 mls @ 5 mls/hr IV TITR [facility] PRN Reason: 5 MG/HR Last Admin: 09/30/16 00:52 Dose: 5 mg/hr, 5 mls/hr Milrinone Lactate 20 mg/ (Dextrose) 100 mls @ 8.4 mls/hr IV TITR [facility] PRN Reason: 0.25 MCG/KG/MIN Last Admin: 09/30/16 00:52 Dose: 0.25 mcg/kg/min, 8.4 mls/hr Isosorbide Mononitrate (Imdur) 30 mg PO DAILY [facility] Last Admin: 09/29/16 12:00 Dose: Not Given Metolazone (Zaroxolyn) 5 mg PO QDAY [facility] Last Admin: 09/29/16 12:00 Dose: Not Given Morphine Sulfate (Morphine) 2 mg IV Q4H PRN PRN Reason: Pain, Moderate (4-6) Ondansetron HCl (Zofran) 4 mg IV Q4H PRN PRN Reason: vomting Potassium Chloride (K-Dur) 20 meq PO QDAY [facility] Last Admin: 09/29/16 17:39 Dose: 20 meq Spironolactone (Aldactone) 25 mg PO QDAY [facility] Last Admin: 09/29/16 12:00 Dose: Not Given Warfarin Sodium (Coumadin Pharmacy To Dose) 1 each PO PKCONSULT [facility] PRN Reason: Protocol Warfarin Sodium (Coumadin) 5 mg PO DAILY@1700 [facility] Last Admin: 09/29/16 17:42 Dose: 5 mg Exam - Vital Signs Vital signs: Vital Signs Temp Pulse Resp BP Pulse Ox 97.4 F L 110 H 18 109/66 100 09/29/16 05:29 09/29/16 05:29 09/29/16 05:29 09/29/16 05:29 09/29/16 05:29 Results - Lab Results 09/30/16 04:39 09/30/16 04:39 Most recent lab results Calcium 9.5 mg/dL (8.4-10.2) 09/30/16 04:39
[2016-09-30] MEDS: CORDARONE PO SCH (10:55)
[2016-09-30] MEDS: ZAROXOLYN PO SCH (10:55)
[2016-09-30] MEDS: K-DUR PO SCH (10:55)
[2016-09-30] MEDS: IMDUR PO SCH (10:55)
[2016-09-30] MEDS: PLAVIX PO SCH (10:55)
[2016-09-30] MEDS: FERGON PO SCH (10:56)
--- NOTE | 2016-09-30 11:37 | Progress Note ---
Assessment and Plan Assessment and plan: Patient is a 51-year-old man with a history of CVA, acute [place], severe systolic heart failure on home milrinone drip via right arm PICC line, cardiomyopathy on Coumadin with pacemaker/AICD and hypertension who presents with shortness of breath and chest pains. He is under the care of Dr. Loy Johnson at [facility] and he would like to be transferred. I have called [facility] transfer center and spoke with Pamella Salcedo, who states since this is a patient request and will be up to the patient's insurance to authorize a transfer, patient is listed as no insurance but further discussion with Mr. Curran and he reports as having [employer] insurance. Chest x-ray read as no evidence of pneumonia, CHF or pneumothorax, right arm PICC line terminates in the mid to lower SVC, cardiomegaly. -Acute on chronic systolic heart failure: Started on IV Lasix drip per cardiology and continue to milrinone which causing slightly low blood pressure -Acute renal failure, vasomotor nephropathy present on admission: Treat CHF, careful with fluids -Chest pain, cardiology is following -DVT prophylaxis: Warfarin Initiated attempt to transfer to [facility] per patient requests History Interval history: Patient seen and examined. Follow up on SOB. Overnight uneventful. No cp, n/v or severe headaches. Imaging, old records, testing, labs, nursing notes reviewed. Hospitalist Physical - Physical exam Narrative exam: GEN: Chronically debilitated NAD, AWAKE, ALERT, ORIENTATED x 3 HEENT: NCAT, PERRL, EOMI, OP CLEAR NECK: SUPPLE, NO THYROMEGALY, NO JVD, NO LAD CVS: RRR, NORMAL S1S2 LUNGS/CHEST: Bibasilar crackles, NORMAL CHEST EXPANSION B, reduced AIR ENTRY B ABD: SOFT, NTND, GBS, NO REBOUND OR GUARDING EXT/SKIN: bilateral SIGNIFICANT EDEMA MSK: FROM X 4 EXTREMITIES NEURO: CN 2-12 GROSSLY INTACT, NO FOCAL DEFICITS PSY: CALM - Constitutional Vitals: Temp Pulse Resp BP Pulse Ox 98.0 F 56 L 18 94/62 100 09/30/16 08:09 09/30/16 10:55 09/30/16 08:09 09/30/16 10:55 09/30/16 08:09 Results - Labs CBC & Chem 7: 09/30/16 04:39 09/30/16 04:39 Labs: Laboratory Last Values WBC 5.9 K/mm3 (4.5-11.0) 09/30/16 04:39 RBC 5.03 M/mm3 (3.65-5.03) 09/30/16 04:39 Hgb 10.9 gm/dl (11.8-15.2) L 09/30/16 04:39 Hct 34.5 % (35.5-45.6) L 09/30/16 04:39 MCV 69 fl (84-94) L 09/30/16 04:39 MCH 22 pg (28-32) L 09/30/16 04:39 MCHC 32 % (32-34) 09/30/16 04:39 RDW 24.3 % (13.2-15.2) H 09/30/16 04:39 Plt Count 241 K/mm3 (140-440) 09/30/16 04:39 Lymph % (Auto) 14.2 % (13.4-35.0) 09/30/16 04:39 [place] % (Auto) 12.1 % (0.0-7.3) H 09/30/16 04:39 Eos % (Auto) 1.1 % (0.0-4.3) 09/30/16 04:39 Baso % (Auto) 1.3 % (0.0-1.8) 09/30/16 04:39 Lymph # 0.8 K/mm3 (1.2-5.4) L 09/30/16 04:39 [place] # 0.7 K/mm3 (0.0-0.8) 09/30/16 04:39 Eos # 0.1 K/mm3 (0.0-0.4) 09/30/16 04:39 Baso # 0.1 K/mm3 (0.0-0.1) 09/30/16 04:39 Seg Neutrophils % 71.3 % (40.0-70.0) H 09/30/16 04:39 Seg Neutrophils # 4.2 K/mm3 (1.8-7.7) 09/30/16 04:39 PT 19.2 Sec. (12.2-14.9) H 09/30/16 04:39 INR 1.62 (0.87-1.13) H 09/30/16 04:39 APTT 29.8 Sec. (24.2-36.6) 09/29/16 06:20 Sodium 131 mmol/L (137-145) L 09/29/16 06:20 Potassium 3.6 mmol/L (3.6-5.0) 09/29/16 06:20 Chloride 86.3 mmol/L (98-107) L 09/29/16 06:20 Carbon Dioxide 25 mmol/L (22-30) 09/30/16 04:39 Anion Gap 21 mmol/L 09/29/16 06:20 BUN 46 mg/dL (9-20) H 09/30/16 04:39 Creatinine 1.8 mg/dL (0.8-1.5) H 09/30/16 04:39 Estimated GFR 49 ml/min 09/30/16 04:39 BUN/Creatinine Ratio 25.55 % 09/30/16 04:39 Glucose 91 mg/dL (75-100) 09/30/16 04:39 Calcium 9.5 mg/dL (8.4-10.2) 09/30/16 04:39 Troponin T 0.042 ng/mL (0.00-0.029) H 09/29/16 11:32 NT-Pro-B Natriuret Pep 3973 pg/mL (0-450) H 09/29/16 06:20 Triglycerides 72 mg/dL (2-149) 09/29/16 06:20 Cholesterol 95 mg/dL (50-199) 09/29/16 06:20 LDL Cholesterol Direct 53 mg/dL (50-130) 09/29/16 06:20 HDL Cholesterol 28 mg/dL (40-59) L 09/29/16 06:20 Cholesterol/HDL Ratio 3.39 % 09/29/16 06:20
--- NOTE | 2016-09-30 13:26 | Discharge Summary ---
Providers - Providers Date of Admission: 09/29/16 08:21 Date of discharge: 09/30/16 Attending physician: DYLLAN MA Primary care physician: PROGRAM [employer] Hospitalization Condition: Stable Hospital course: Patient is a 51-year-old man with a history of CVA, acute [place], severe systolic heart failure on home milrinone drip via right arm PICC line, cardiomyopathy on Coumadin with pacemaker/AICD and hypertension who presents with shortness of breath and chest pains. He is under the care of Dr. Loy Johnson at [facility] and he would like to be transferred. I have called [facility] transfer center and spoke with Pamella Salcedo, who states since this is a patient request and will be up to the patient's insurance to authorize a transfer, patient is listed as no insurance but further discussion with Mr. Curran and he reports as having [employer] insurance. Chest x-ray read as no evidence of pneumonia, CHF or pneumothorax, right arm PICC line terminates in the mid to lower SVC, cardiomegaly. -Acute on chronic systolic heart failure: no on Sujit(i) because ARF, and not on bblocker due to hypotension per Dr. Veloz. -Acute renal failure, vasomotor nephropathy present on admission: Treat CHF, careful with fluids -Chest pain, cardiology is following -DVT prophylaxis: Warfarin Initiated attempt to transfer to [facility] per patient requests I was called by press helper Dr. Veloz who witnessed patient lying prone without signs of orthopnea or PND; therefore, most likely he is not decompensated heart failure and can be discharged home per cardiology. Disposition: DC-01 TO HOME OR SELFCARE Time spent for discharge: 35 minutes Core Measure Documentation - Palliative Care Palliative Care/ Comfort Measures: Not Applicable - Core Measures Any of the following diagnoses?: heart failure - VTE Discharge Requirements Deep Vein Thrombosis/Pulmonary Embolism Present on Admission: No Has pt received <5 days of overlap therapy or INR<2.0: No Anticoagulant overlap therapy prescribed at discharge: No Contraindication No Overlap Therapy order at DC: Not Indicated - Heart Failure Discharge Requirements SUJIT/ARB for LVSD if EF <40%: No Reason for no SUJIT/ARB: Hypotension Beta eric at discharge: No Reason for no beta eric on DC: Hypotension Exam - Physical Exam Narrative exam: GEN: Chronically debilitated NAD, AWAKE, ALERT, ORIENTATED x 3 HEENT: NCAT, PERRL, EOMI, OP CLEAR NECK: SUPPLE, NO THYROMEGALY, NO JVD, NO LAD CVS: RRR, NORMAL S1S2 LUNGS/CHEST: Bibasilar crackles, NORMAL CHEST EXPANSION B, reduced AIR ENTRY B ABD: SOFT, NTND, GBS, NO REBOUND OR GUARDING EXT/SKIN: bilateral SIGNIFICANT EDEMA MSK: FROM X 4 EXTREMITIES NEURO: CN 2-12 GROSSLY INTACT, NO FOCAL DEFICITS PSY: CALM - Constitutional Vitals: Temp Pulse Resp BP Pulse Ox 98.0 F 56 L 18 94/62 100 09/30/16 08:09 09/30/16 10:55 09/30/16 08:09 09/30/16 10:55 09/30/16 08:09 Plan Activity: other (no strenous activites until cleared by cardiology) Diet: low salt Special Instructions: record daily BP diary Additional Instructions: Follow with [facility] press helper, Dr. Loy Johnson or his colleague, make first available appointment Follow up with: PRIMARY CARE, [Primary Care Provider] - 3-5 Days Forms: Warfarin Discharge Instruction
== END 2016-09-30 15:00 | disposition home or self-care (01) | DRG 291 ==
LOC: ED 05:27 → 4A 08:21
PROVIDERS: ADMIT Internal Medicine; ATTEND Internal Medicine
DX: I13.0 Hypertensive heart and chronic kidney disease with heart failure and stage 1 through stage 4 chronic kidney disease, or unspecified chronic kidney disease (principal); N17.0 Acute kidney failure with tubular necrosis; I50.23 Acute on chronic systolic (congestive) heart failure; I42.9 Cardiomyopathy, unspecified; E78.5 Hyperlipidemia, unspecified; N18.9 Chronic kidney disease, unspecified; Z95.0 Presence of cardiac pacemaker; Z90.49 Acquired absence of other specified parts of digestive tract; Z91.041 Radiographic dye allergy status; Z86.73 Personal history of transient ischemic attack (TIA), and cerebral infarction without residual deficits; I25.2 Old myocardial infarction; Z79.01 Long term (current) use of anticoagulants; Z91.19 Patient's noncompliance with other medical treatment and regimen; Z86.711 Personal history of pulmonary embolism; Z86.718 Personal history of other venous thrombosis and embolism; Z82.49 Family history of ischemic heart disease and other diseases of the circulatory system
CPT/HCPCS: 36415; 71010; 76770; 80048; 80061; 83880; 84484; 85025; 85610; 85730; 93005; 93010; 94760; 96374; 96375; 99285; A9270-GY; J1940; J2260; J2405; J3010